=== PATIENT | male | born 1960 | race Caucasian/White ===

== ENCOUNTER 2018-07-12 15:08 | Observation (INO) | payer OTHER, MEDICARE ==
[~2018-07-12] VITALS: Ht 188 cm; Wt 108.4 kg
[2018-07-12 15:14] VITALS: BP 144/99
[2018-07-12] MEDS ORDERED: ASPIRIN325 PO (15:20)
[2018-07-12] MEDS ORDERED: LISINOPRIL10 MG PO (15:21)
[2018-07-12] MEDS ORDERED: PROTONIX40 M1 PO (15:22)
[2018-07-12] MEDS ORDERED: SYNTHROID150 MCG PO (15:22)
[2018-07-12] MEDS ORDERED: LIPITOR80 MG PO (15:22)
[2018-07-12] MEDS ORDERED: CARDURA4 MG PO (15:22)
[2018-07-12] MEDS ORDERED: CARDIZEM CD120 MG PO (15:22)
[2018-07-12 16:01] LABS: ABSOLUTE BASOPHILS 0.1 thou/uL (0.0-0.2); ABSOLUTE EOSINOPHILS 0.2 thou/uL (0.0-0.7); ABSOLUTE LYMPHOCYTES 1.5 thou/uL (0.8-5.3); ABSOLUTE MONOCYTES 0.6 thou/uL (0.0-1.2); ABSOLUTE NEUTROPHILS 6.9 thou/uL (1.6-8.1); EOSINOPHILS 2.4 %; HEMATOCRIT 41.3 % (42.0-52.0); HEMOGLOBIN 14.1 gm/dL (14.0-18.0); LYMPHOCYTES 16.4 %; MCH 30.1 pg (26.0-34.0); MCHC 34.1 g/dL (28.0-37.0); MCV 88.3 fL (80.0-100.0); MONOCYTES 6.2 %; MPV 8.5 fl. (7.2-11.1); NUCLEATED RBCS 0 /100WBC; PLATELET COUNT* 174 thou/uL (150-400); RBC 4.68 mil/uL (4.50-6.00); RDW-CV 14.3 % (10.5-14.5); WBC 9.3 thou/uL (4.0-11.0)
[2018-07-12 16:08] LABS: URINE BILIRUBIN NEGATIVE (Negative); URINE BLOOD TRACE (Negative); URINE CLARITY CLEAR; URINE COLOR YELLOW; URINE GLUCOSE-RANDOM NEGATIVE (Negative); URINE KETONES NEGATIVE (Negative); URINE LEUKOCYTES-REFLEX NEGATIVE (Negative); URINE NITRITE-REFLEX NEGATIVE (Negative); URINE PROTEIN NEGATIVE (Negative); URINE SPECIFIC GRAVITY 1.015 (1.005-1.030); URINE UROBILINOGEN 0.2 E.U./dl (0.2-1.0)
[2018-07-12 16:08] LABS: ANION GAP 9 mmol/L (7-16); BUN 20 mg/dL (7-18); CHLORIDE 102 mmol/L (98-107); CO2 26 mmol/L (21-32); CREATININE 1.4 mg/dL (0.6-1.3); GLUCOSE 107 mg/dL (70-99); POTASSIUM 3.9 mmol/L (3.5-5.1); SODIUM 137 mmol/L (136-145)
[2018-07-12 16:09] LABS: APTT 25.4 Seconds (25.0-31.3); INR 0.9; PROTIME 9.7 Seconds (9.20-11.50)
[2018-07-12 16:18] LABS: ALBUMIN 3.7 g/dL (3.4-5.0); ALKALINE PHOSPHATASE 74 U/L (46-116); NT-PRO BRAIN NAT PEPTIDE 25 pg/mL (<300); SGOT 21 U/L (15-37); SGPT 42 U/L (30-65); TOTAL BILIRUBIN 0.4 mg/dL (<0.1-1.0); TOTAL PROTEIN 6.8 g/dL (6.4-8.2); TROPONIN-I LEVEL <0.06 ng/mL (<0.06)
[2018-07-12 17:23] VITALS: BP 154/92
[2018-07-12 18:09] VITALS: BP 128/87
[2018-07-12] MEDS ORDERED: VALIUM5 MG PO (18:50)
[2018-07-12] MEDS ORDERED: NORCO 10-325 T1 EACH PO (18:51)
[2018-07-12] MEDS ORDERED: TYLENOL325 MG PO (18:53)
[2018-07-12] MEDS ORDERED: VERAPAMIL E.R240 M1 PO (18:57)
[2018-07-12 19:40] VITALS: BP 116/74
[2018-07-13] VITALS: BP 109/78
[2018-07-13 04:00] VITALS: BP 108/74
--- NOTE | 2018-07-13 06:53 | NUR ---
VITALS WNL. SEE MAR. SEE CHARTING. HOURLY ROUNDING FOR SAFETY.
[2018-07-13 07:45] VITALS: BP 112/71
[2018-07-13 08:05] LABS: ALBUMIN 3.3 g/dL (3.4-5.0); ALKALINE PHOSPHATASE 67 U/L (46-116); ANION GAP 8 mmol/L (7-16); BUN 18 mg/dL (7-18); CALCIUM 8.2 mg/dL (8.5-10.1); CHLORIDE 102 mmol/L (98-107); CHOLESTEROL 159 mg/dL (<200); CO2 25 mmol/L (21-32); CREATININE 1.1 mg/dL (0.6-1.3); GLUCOSE 121 mg/dL (70-99); HDL CHOLESTEROL 48 mg/dL (>40); LDL CHOLESTEROL 59 mg/dL (<100); SERUM ASSESSMENT Clear; SGOT 15 U/L (15-37); SGPT 37 U/L (30-65); SODIUM 135 mmol/L (136-145); TC:HDL 3.3 Ratio (Not establshd); TOTAL BILIRUBIN 0.2 mg/dL (<0.1-1.0); TOTAL PROTEIN 6.2 g/dL (6.4-8.2); TRIGLYCERIDE 262 mg/dL (<150); VLDL 52 mg/dL (<40)
[2018-07-13 12:21] VITALS: BP 112/71
[2018-07-13 12:23] VITALS: BP 113/74
[2018-07-13 12:30] VITALS: BP 112/71
--- NOTE | 2018-07-13 13:45 | NUR ---
ATTEMPTED TO SEE PT. FOR EVALUATION AT 1340. NURSING IN WITH PT. DISCUSSING DISCHARGE. EXPLAINED ROLE OF OT TO PT. AND FAMILY MEMBER PRESENT, PT. STATED NOT WANTING OT SERVICES. ASSURED PT. HE CAN CALL IF ANY CONCERNS ARISE.
--- NOTE | 2018-07-13 13:54 | NUR ---
PT AND FAMILY VERBALIZED UNDERSTANDING TO DC INSTRUCTIONS. PT EDUCATED TO FOLLOW UP WITH PCP AND GIVEN INFORMATION TO CALL HOSPITAL FOR PATIENT SERVICES IN ORDER TO FIND PCP. PT VERBALIZED UNDERSTANDING OF MEDICATIONS AND STROKE SYMPTOMS TO WATCH FOR. PT VSS AT TIME OF DC AND SR ON THE MONITOR. PT HAS C/O BACK PAIN THAT IS A CHRONIC CONDITION FOR THE PATIENT. PT NIH SCORE AT TIME OF DC IS 0. PT AMBULATED WITH STEADY GAIT WITH HOSPITAL STAFF OUT OF THE HOSPITAL. WILL SIGN OFF AT THIS TIME.
--- NOTE | 2018-07-13 14:39 | NUR ---
NOTE P.T. ORDERS RECEIVED ON 07/13/18 AT 1040. PT HAS BEEN DISCHARGED HOME FROM HOSPITAL. PER O.T., PT DENIED NEED FOR P.T. AT THIS TIME.
[2018-07-14 03:05] LABS: GLYCOHEMOGLOBIN (HGB A1C) 5.8 % (4.8-5.6)
--- NOTE | 2018-07-14 13:40 | EKG ---
[place] [address] ELECTROCARDIOGRAM REPORT Name: ERICCHIP Miranda Slade [address] [id number] Admission: 07/12/18 Attend Phys: Florin Montague Discharge: 07/13/18 Date of : 58 Report #: [id number] THIS REPORT FOR: //name// [facility] ED Test Date: 2018-07-12 Test Time: 15:19:35 Pat Name: CHIP REYES Department: Room: [facility] Gender: M Licensed Sales Producer: LINDSEY : 1960 Requested By: Christiano Park Order Number: [id number] MD: Wes Moore Measurements Intervals [place] Rate: 86 P: 36 WI: 174 QRS: -6 QRSD: 101 T: 39 QT: 361 QTc: 432 Interpretive Statements Sinus rhythm Probable left atrial enlargement Abnormal R-wave progression, late transition Baseline wander in lead(s) V2 No previous ECG available for comparison Electronically Signed On 07-14-2018 13:40:00 CASE PLANNER by Wes Moore [email or web address] <ELECTRONICALLY SIGNED> By: Wes Moore MD, [facility] 07/14/18 1340 1519 1519 Wes Moore MD, [facility] /EPI
== END 2018-07-13 14:15 | disposition home or self-care (01) ==
LOC: M.ERS 15:08 → M.TBA-ER 16:35 → M.2W 16:35
PROVIDERS: Emergency Medicine Emergency Medical Services; ADMIT Internal Medicine
DX: I65.29 Occlusion and stenosis of unspecified carotid artery (principal); I63.9 Cerebral infarction, unspecified; G45.9 Transient cerebral ischemic attack, unspecified; I25.10 Atherosclerotic heart disease of native coronary artery without angina pectoris; K21.9 Gastro-esophageal reflux disease without esophagitis; R55 Syncope and collapse; I71.9 Aortic aneurysm of unspecified site, without rupture; I12.9 Hypertensive chronic kidney disease with stage 1 through stage 4 chronic kidney disease, or unspecified chronic kidney disease; N18.2 Chronic kidney disease, stage 2 (mild); E78.5 Hyperlipidemia, unspecified; E78.00 Pure hypercholesterolemia, unspecified; E05.90 Thyrotoxicosis, unspecified without thyrotoxic crisis or storm; Z98.890 Other specified postprocedural states; Z95.5 Presence of coronary angioplasty implant and graft; Z79.82 Long term (current) use of aspirin; Z79.899 Other long term (current) drug therapy

== ENCOUNTER 2018-12-07 10:59 | Emergency (ER) | payer OTHER, MEDICARE ==
[~2018-12-07] VITALS: Ht 185.4 cm; Wt 108.9 kg
[~2018-12-07 10:59] MED LIST: ASPIRIN325 PO; CARDIZEM CD120 MG PO; CARDURA4 MG PO; LIPITOR80 MG PO; LISINOPRIL10 MG PO; NORCO 10-325 T1 EACH PO; PROTONIX40 M1 PO; SYNTHROID150 MCG PO; TYLENOL325 MG PO; VALIUM5 MG PO; VERAPAMIL E.R240 M1 PO
[2018-12-07 12:55] LABS: ABSOLUTE EOSINOPHILS 0.2 thou/uL (0.0-0.7); ABSOLUTE LYMPHOCYTES 0.8 thou/uL (0.8-5.3); ABSOLUTE MONOCYTES 0.6 thou/uL (0.0-1.2); ABSOLUTE NEUTROPHILS 8.9 thou/uL (1.6-8.1); BASOPHILS 0.4 %; EOSINOPHILS 1.6 %; HEMATOCRIT 36.5 % (42.0-52.0); HEMOGLOBIN 12.4 gm/dL (14.0-18.0); LYMPHOCYTES 7.6 %; MCH 29.9 pg (26.0-34.0); MCHC 33.9 g/dL (28.0-37.0); MCV 88.2 fL (80.0-100.0); MONOCYTES 5.7 %; MPV 7.6 fl. (7.2-11.1); NUCLEATED RBCS 0 /100WBC; PLATELET COUNT* 215 thou/uL (150-400); POLYS 84.7 %; RBC 4.14 mil/uL (4.50-6.00); RDW-CV 14.2 % (10.5-14.5); WBC 10.5 thou/uL (4.0-11.0)
[2018-12-07 13:02] LABS: CALCIUM 8.6 mg/dL (8.5-10.1); CREATININE 1.1 mg/dL (0.6-1.3); POTASSIUM 3.8 mmol/L (3.5-5.1)
[2018-12-07 13:07] LABS: ALBUMIN 3.5 g/dL (3.4-5.0); TOTAL BILIRUBIN 0.3 mg/dL (<0.1-1.0); TOTAL PROTEIN 6.7 g/dL (6.4-8.2); URIC ACID* 5.3 mg/dL (2.6-7.2)
[2018-12-07 14:00] LABS: ESR (SEDRATE) 18 mm/hr (0-20)
[2018-12-07] MEDS ORDERED: PERCOCET PO (14:27)
[2018-12-07 14:51] VITALS: BP 98/60
== END 2018-12-07 14:53 | disposition home or self-care (01) ==
LOC: M.ERS 10:59
PROVIDERS: Nurse Practitioner Family
DX: G89.18 Other acute postprocedural pain (principal); M25.562 Pain in left knee; R60.0 Localized edema; I25.10 Atherosclerotic heart disease of native coronary artery without angina pectoris; I12.9 Hypertensive chronic kidney disease with stage 1 through stage 4 chronic kidney disease, or unspecified chronic kidney disease; N18.2 Chronic kidney disease, stage 2 (mild); E78.00 Pure hypercholesterolemia, unspecified; E03.9 Hypothyroidism, unspecified; Z95.5 Presence of coronary angioplasty implant and graft